=== PATIENT | male | born 1955 | race American Indian/Alaskan Native ===

== ENCOUNTER 2018-02-28 17:54 | Emergency (ER) | payer MEDICARE ==
[2018-02-28 17:57] VITALS: BP 115/80
--- NOTE | 2018-03-01 00:25 | Emergency Department Report ---
ED General Adult HPI - General Chief complaint: Upper Respiratory Infection Stated complaint: STUFFY, SINUS PAIN, JOINT PAIN Time Seen by Provider: 03/01/18 00:21 Source: patient Mode of arrival: Ambulatory Limitations: No Limitations - History of Present Illness Initial comments: 62-year-old -[place] male comes to the emergency room for onset yesterday with nasal stuffiness and sinus pressure he admits to sneezing and runny nose. Patient also reports that he has joint pain. Patient reports that he took his Zyrtec's yesterday. Patient does have a primary care provider. Denies any fever or chills no vomiting. Patient thicker to come in to get a shot. -: days(s) (1) Location: face Consistency: constant Improves with: none Worsens with: none - Related Data Previous Rx's Medication Instructions Recorded Last Taken Type Cetirizine HCl [ZyrTEC] 10 mg PO QDAY #30 capsule 03/01/18 Unknown Rx Fluticasone [Flonase] 1 spray NS QDAY #1 bottle 03/01/18 Unknown Rx Allergies Allergy/AdvReac Type Severity Reaction Status Date / Time No Known Allergies Allergy Unverified 02/28/18 17:55 ED Review of Systems ROS: Stated complaint: STUFFY, SINUS PAIN, JOINT PAIN Other details as noted in HPI Constitutional: denies: chills, fever Eyes: denies: eye pain, eye discharge, vision change ENT: congestion, other (rhinorrhea, nasal pressure) Respiratory: denies: cough, shortness of breath, wheezing Cardiovascular: denies: chest pain, palpitations Endocrine: no symptoms reported Gastrointestinal: nausea (when he stands up intermittently). denies: abdominal pain, diarrhea Genitourinary: denies: urgency, dysuria Musculoskeletal: arthralgia. denies: back pain, joint swelling Skin: denies: rash, lesions Neurological: headache Psychiatric: denies: anxiety, depression Hematological/Lymphatic: denies: easy bleeding, easy bruising ED Past Medical Hx - Past Medical History Previous Medical History?: No - Surgical History Past Surgical History?: No - Medications Home Medications: Home Medications Medication Instructions Recorded Confirmed Last Taken Type Cetirizine HCl [ZyrTEC] 10 mg PO QDAY #30 capsule 03/01/18 Unknown Rx Fluticasone [Flonase] 1 spray NS QDAY #1 bottle 03/01/18 Unknown Rx ED Physical Exam - General Limitations: No Limitations General appearance: alert, in no apparent distress, other (nontoxic) - Head Head exam: Present: atraumatic, normocephalic - Eye Eye exam: Present: normal appearance - ENT ENT exam: Present: mucous membranes moist, TM's normal bilaterally, normal external ear exam, other (denies any maxillary or frontal sinus tenderness) - Expanded ENT Exam Expanded Mouth exam: Present: normal external inspection Throat exam: Positive: normal inspection. Negative: tonsillar erythema, tonsillomegaly - Neck Neck exam: Present: normal inspection - Respiratory Respiratory exam: Present: normal lung sounds bilaterally. Absent: respiratory distress - Cardiovascular Cardiovascular Exam: Present: regular rate, normal rhythm. Absent: systolic murmur, diastolic murmur, rubs, gallop - GI/Abdominal GI/Abdominal exam: Present: soft, normal bowel sounds - Rectal Rectal exam: Present: deferred - Extremities Exam Extremities exam: Present: normal inspection, full ROM - Back Exam Back exam: Present: normal inspection, full ROM. Absent: tenderness - Neurological Exam Neurological exam: Present: alert, oriented X3 - Psychiatric Psychiatric exam: Present: normal affect, normal mood - Skin Skin exam: Present: warm, dry, intact, normal color. Absent: rash ED Course Vital Signs 02/28/18 17:55 Temperature 97.9 F Pulse Rate 84 Respiratory 18 Rate Blood Pressure 115/80 O2 Sat by Pulse 96 Oximetry ED Medical Decision Making - Medical Decision Making Patient's been evaluated with this provider fast track. I discussed the patient that he should continue with his Zyrtec as prescribed. I will prescribe him Flonase for nasal congestion. I also discussed with patient that he can try Afrin nasal spray one spray in each nostril at night to help with nasal congestion. Also discussed the patient he can take ibuprofen or Aleve for joint pain. Patient declined a Toradol injection here in fast track. Also discussed the patient he needs to follow up with his primary care provider. Patient verbalized understanding. Critical care attestation.: If time is entered above; I have spent that time in minutes in the direct care of this critically ill patient, excluding procedure time. ED Disposition Clinical Impression: Allergic rhinitis Qualifiers: Allergic rhinitis trigger: unspecified Allergic rhinitis seasonality: seasonal Qualified Code(s): J30.2 - Other seasonal allergic rhinitis Disposition: DC-01 TO HOME OR SELFCARE Is pt being admited?: No Does the pt Need Aspirin: No Condition: Stable Instructions: Allergic Rhinitis (ED) Additional Instructions: Please take medication as prescribed. Follow up with her primary care provider if symptoms persist or gets worse. Prescriptions: Cetirizine HCl [ZyrTEC] 10 mg PO QDAY #30 capsule Fluticasone [Flonase] 1 spray NS QDAY #1 bottle Referrals: MARY NOVOA MD [Primary Care Provider] - 3-5 Days
== END 2018-03-01 00:35 | disposition home or self-care (01) ==
LOC: ED 17:54
DX: J30.2 Other seasonal allergic rhinitis (principal); M25.50 Pain in unspecified joint; R11.0 Nausea
CPT/HCPCS: 99282

== ENCOUNTER 2019-07-01 06:32 | Day surgery (SDC) | payer MEDICARE ==
[~2019-07-01 06:32] MED LIST: ANCEF/STERILE WATER 2 GM/20 ML IV NR
[2019-07-01] MEDS ORDERED: DILAUDID IV PRN (07:02)
[2019-07-01] MEDS ORDERED: ZOFRAN IV PRN (07:02)
[2019-07-01] MEDS ORDERED: SUBLIMAZE IV PRN (07:02)
--- NOTE | 2019-07-01 07:08 | Anesthesia Consultation ---
Anesthesia Consult and Med Hx Date of service: 07/01/19 - Airway Anesthetic Teeth Evaluation: Dentures, Edentulous ROM Head & Neck: Adequate Mental/Hyoid Distance: Adequate Mallampati Class: Class II Intubation Access Assessment: Good - Pre-Operative Health Status ASA Pre-Surgery Classification: ASA2 Proposed Anesthetic Plan: General - Pulmonary Hx Sleep Apnea: No - Cardiovascular System Hx Hypertension: Yes (STATES SEVERAL YEARS) - Gastrointestinal Hx Gastroesophageal Reflux Disease: Yes - Endocrine Hx Non-Insulin Dependent Diabetes: Yes (Borderline)
--- NOTE | 2019-07-01 07:09 | Anesthesia Day of Surgery ---
Anesthesia Day of Surgery - Day of Surgery Patient Examined: Yes Patient H&P Reviewed: Yes Patient is NPO: Yes
[2019-07-01] MEDS ORDERED: PROTONIX PO NR (07:10)
[2019-07-01] MEDS ORDERED: MARCAINE 0.25% INFILTRATI ONE (07:31)
[2019-07-01] MEDS ORDERED: LACTATED RINGERS 1,000 ML IV SCH (08:00)
[2019-07-01] MEDS ORDERED: DIPRIVAN 10 MG/ML IV ONE (08:34)
[2019-07-01] MEDS ORDERED: DILAUDID ONE (08:34)
[2019-07-01] MEDS ORDERED: XYLOCAINE MPF 2% ONE (08:35)
[2019-07-01] MEDS ORDERED: NACL 0.9% IR ONE (09:07)
[2019-07-01] MEDS ORDERED: ZOFRAN ONE (09:35)
--- NOTE | 2019-07-01 09:38 | Short Stay Summary ---
Short Stay Documentation Date of service: 07/01/19 - History H&P: obtained from office - Allergies and Medications Current Medications: Allergies No Known Allergies Allergy (Unverified 02/28/18 17:55) Home Medications Medication Instructions Recorded Confirmed Last Taken Type Aspirin 81 mg PO DAILY 06/24/19 06/24/19 Unknown History Lisinopril/Hydrochlorothiazide 20 mg PO DAILY 06/24/19 06/24/19 Unknown History Omeprazole 20 mg PO DAILY 06/24/19 06/24/19 Unknown History Active Medications Cefazolin Sodium (Ancef/Sterile Water 2 Gm/20 Ml) 2 gm IV PREOP NR Stop: 07/01/19 18:00 Fentanyl (Sublimaze) 50 mcg IV Q5MIN PRN PRN Reason: Pain , Severe (7-10) Stop: 07/01/19 20:00 Hydromorphone HCl (Dilaudid) 0.5 mg IV Q10MIN PRN PRN Reason: Pain , Severe (7-10) Stop: 07/01/19 20:00 Lactated Ringer's (Lactated Ringers) 1,000 mls @ 125 mls/hr IV DIRECT YANIV Last Admin: 07/01/19 07:47 Dose: 125 mls/hr Documented by: Ondansetron HCl (Zofran) 4 mg IV ONCE PRN PRN Reason: Nausea And Vomiting Stop: 07/01/19 16:00 Pantoprazole Sodium (Protonix) 40 mg PO ONCE NR Stop: 07/01/19 16:00 Last Admin: 07/01/19 07:49 Dose: 40 mg Documented by: - Brief post op/procedure progress note Date of procedure: 07/01/19 Pre-op diagnosis: phimosis Post-op diagnosis: same Procedure: circ Anesthesia: GETA Surgeon: SANTANA STENI Estimated blood loss: minimal Pathology: list (foreskin) Specimen disposition: to lab Condition: stable - Hospital course Hospital course: norco on chart - Disposition Condition at discharge: Stable Disposition: DC-01 TO HOME OR SELFCARE Short Stay Discharge Plan Follow up with: MARY WELSH [Other] - 7 Days
--- NOTE | 2019-07-01 09:58 | Operative Report ---
PREOPERATIVE DIAGNOSIS: Phimosis. POSTOPERATIVE DIAGNOSIS: Phimosis. PROCEDURE: Circumcision. SURGEON: Vik Dubois MD ANESTHESIA: General. ESTIMATED BLOOD LOSS: Minimal. FLUIDS: Crystalloid. COMPLICATIONS: No complications. INDICATIONS: This 64-year-old gentleman seen in the office for recurrent phimosis despite topical therapy. On exam, he had significant phimosis with skin discoloration. Discussed options. He agreed to proceed with surgical intervention. DESCRIPTION OF PROCEDURE: The patient was taken to the operative suite, placed in a supine position. After general anesthesia, he was prepped and draped in a sterile fashion. Foreskin was marked at the coronal ridge. Dorsal and ventral slit was made. Foreskin was circumferentially removed and sent for routine pathologic evaluation. Shaft skin was retracted proximally. Adequate hemostasis was achieved. The proximal and distal shaft skin was reapproximated. A 2-0 chromic interrupted suture was placed to reapproximate the proximal and distal skin. Xeroform gauze was placed around the incision as well as Coban. He tolerated the procedure well. He was extubated and taken to recovery room. He will go home on [place]. He can take his dressing off in the morning and shower or sooner if unable to urinate. [facility]# [id number] [facility]/RIT[facility]
[2019-07-01 14:13] VITALS: BP 151/90
--- NOTE | 2019-07-01 20:30 | Post Anesthesia Evaluation ---
- Post Anesthesia Evaluation Patient Participated: Yes Airway Patent: Yes Stable Respiratory Function: Yes Nausea/Vomiting: No Temp > 96.8F: Yes Pain Manageable: Yes Adequeate Hydration: Yes Anesthesia Complications: No Block Receding Appropriately: Not Applicable Patient on Ventilator: No
== END 2019-07-01 13:30 | disposition home or self-care (01) ==
LOC: OR 06:32
PROVIDERS: ATTEND Urology
DX: N47.1 Phimosis (principal); E78.00 Pure hypercholesterolemia, unspecified; I10 Essential (primary) hypertension; K21.9 Gastro-esophageal reflux disease without esophagitis; E11.9 Type 2 diabetes mellitus without complications; Z79.899 Other long term (current) drug therapy; Z79.82 Long term (current) use of aspirin; Z98.890 Other specified postprocedural states
CPT/HCPCS: 54161; 82962; 88304; J0690; J1170; J2405; J2704; J7120